=== PATIENT | female | born 1985 | race Caucasian/White ===

== ENCOUNTER 2020-04-06 12:05 | Outpatient (REF) | payer OTHER, SELFPAY ==
[2020-04-06 12:29] LABS: COVID-19 Test Negative (Negative)
== END 2020-04-06 12:06 | disposition home or self-care (01) ==
LOC: HO.EMPCOV 12:05
PROVIDERS: Visit Provider Internal Medicine
DX: Z20.822 Contact with and (suspected) exposure to COVID-19 (principal)
CPT/HCPCS: 36415; 87635; C9803

== ENCOUNTER 2020-04-12 07:42 | Outpatient (REF) | payer OTHER, SELFPAY ==
[2020-04-12 08:13] LABS: COVID-19 Test Negative (Negative); IDNOW Serial# 55D5AD1C
== END 2020-04-12 07:43 | disposition home or self-care (01) ==
LOC: HO.EMPCOV 07:42
PROVIDERS: Visit Provider Internal Medicine
DX: Z20.822 Contact with and (suspected) exposure to COVID-19 (principal)
CPT/HCPCS: 36415; 87635; C9803

== ENCOUNTER 2020-04-26 11:20 | Outpatient (REF) | payer OTHER, SELFPAY ==
[2020-04-26 11:38] LABS: COVID-19 Test Negative (Negative)
== END 2020-04-26 11:21 | disposition home or self-care (01) ==
LOC: HO.EMPCOV 11:20
PROVIDERS: Visit Provider Internal Medicine
DX: Z20.822 Contact with and (suspected) exposure to COVID-19 (principal)
CPT/HCPCS: 36415; 87635; C9803

== ENCOUNTER 2020-12-29 12:43 | Emergency (ER) | payer OTHER, SELFPAY | END 2020-12-29 15:04 | disposition left against medical advice (07) | LOC: HO.ED 14:58 | PROVIDERS: Emergency Provider Emergency Medicine | DX: R26.2 Difficulty in walking, not elsewhere classified (principal) ==